=== PATIENT | male | born 1985 | race Hispanic/Latino ===

== ENCOUNTER 2020-10-27 15:06 | Emergency (ER) | payer BC, OTHER ==
[2020-10-27] MEDS ORDERED: DiphenhydrAMINE HCL 50 MG/ML VIAL ONE (15:41)
[2020-10-27] MEDS ORDERED: DEXAMETHASONE SOD PHOSPHATE 10MG/ML 1ML VIAL ONE (15:41)
[2020-10-27] MEDS ORDERED: FAMOTIDINE 20MG TAB 20 MG TAB ONE (15:41)
== END 2020-10-27 17:20 | disposition home or self-care (01) ==
LOC: EDH 15:06
DX: T78.3XXA Angioneurotic edema, initial encounter (principal); T50.B95A Adverse effect of other viral vaccines, initial encounter; Y92.89 Other specified places as the place of occurrence of the external cause
CPT/HCPCS: 96372 ×2; 99284; J1100; J1200

== ENCOUNTER 2021-07-09 02:30 | Emergency (ER) | payer OTHER ==
[~2021-07-09] VITALS: Ht 165.1 cm; Wt 102.1 kg
[2021-07-09 03:11] LABS: APPEARANCE,URINE Clear (CLEAR); BILIRUBIN,URINE Negative (NEGATIVE); COLOR,URINE Yellow (YELLOW); GLUCOSE, URINE (UA) Negative (NEGATIVE); KETONES,URINE 15 mg/dL (NEGATIVE); LEUKOCYTE ESTERASE ,URINE Trace (NEGATIVE); NITRATE,URINE Negative (NEGATIVE); OCCULT BLOOD,URINE Large (NEGATIVE); PH,URINE 5.5 (5.0-8.0); PROTEIN,URINE Trace mg/dL (NEGATIVE)
[2021-07-09 03:23] LABS: RBC,URINE 51-100 /HPF (0-1)
[2021-07-09 03:24] LABS: BACTERIA,URINE None Seen /HPF (None Seen); MUCUS,URINE Few LPF (None Seen); SQUAMOUS EPITHELIAL CELL,UR None Seen /HPF (0-2); WBC,URINE 0-1 /HPF (0-1)
[2021-07-09 03:28] LABS: BASOPHILS % (AUTO) 0.7 % (0.0-5.0); HEMATOCRIT 46.7 % (42-54); LYMPHOCYTES % (AUTO) 35.9 % (21.0-51.0); MEAN CORPUSCULAR HEMOGLOBIN 29.6 pg (27.0-33.0); MEAN CORPUSCULAR HGB CONC 35.1 g/dL (32.0-36.0); MEAN CORPUSCULAR VOLUME 84.3 fL (79-99); MONOCYTES % (AUTO) 7.5 % (3.0-13.0); NEUTROPHILS % (AUTO) 53.8 % (40.0-77.0); PLATELET COUNT (AUTO) 355 K/uL (130-400); RED BLOOD CELL COUNT(AUTO) 5.54 MIL/uL (4.50-6.20); RED CELL DISTRIBUTION WIDTH 12.4 % (11.0-15.5); WHITE BLOOD COUNT (AUTO) 7.6 K/uL (4.8-10.8)
[2021-07-09 03:55] LABS: BILIRUBIN,TOTAL 0.5 mg/dL (0.2-1.0); TOTAL PROTEIN, SERUM 7.2 g/dL (6.0-8.3)
[2021-07-09] MEDS ORDERED: KETOROLAC 30MG VIAL (30MG/ML) ONE (04:50)
[2021-07-09] MEDS ORDERED: 0.9%NACL 1000ML 1,000 ML IV ONE (05:00)
[2021-07-09] MEDS ORDERED: KETOROLAC 30MG VIAL (30MG/ML) IV ONE (05:00)
[2021-07-09] MEDS ORDERED: MELO7.5T12 PO (05:23)
[2021-07-09] MEDS ORDERED: METO-296 PO (05:23)
[2021-07-09] MEDS ORDERED: ONDA4TAB10 PO (05:23)
[2021-07-09] MEDS ORDERED: DICY20TA2 PO (05:23)
[2021-07-09] MEDS ORDERED: TAMS-1 PO (05:23)
[2021-07-09 05:30] VITALS: BP 126/75
== END 2021-07-09 05:50 | disposition home or self-care (01) ==
LOC: EDH 02:30
DX: E86.9 Volume depletion, unspecified (principal); N23 Unspecified renal colic; R31.9 Hematuria, unspecified; I10 Essential (primary) hypertension; Z79.1 Long term (current) use of non-steroidal anti-inflammatories (NSAID); Z87.442 Personal history of urinary calculi
CPT/HCPCS: 36415; 80053; 81001; 85025; 96361; 96374; 99283; J1885; J7030

== ENCOUNTER 2023-05-04 00:22 | Emergency (ER) | payer OTHER ==
[~2023-05-04] VITALS: Ht 165.1 cm; Wt 108.0 kg
[~2023-05-04 00:22] MED LIST: DICY20TA2 PO; MELO7.5T12 PO; METO-296 PO; ONDA4TAB10 PO; TAMS-1 PO
[2023-05-04 01:12] LABS: BASOPHILS # (AUTO) 0.06 K/uL (0.00-0.20); BASOPHILS % (AUTO) 0.6 % (0.0-5.0); EOSINOPHILS # (AUTO) 0.25 K/uL (0.00-0.70); EOSINOPHILS % (AUTO) 2.6 % (0.0-8.0); HEMATOCRIT 39.7 % (42-54); IMMATURE GRANULOCYTE ABSOLUTE 0.07 K/uL (0-1); LYMPHOCYTES # (AUTO) 3.6 K/uL (1.0-4.8); LYMPHOCYTES % (AUTO) 38.3 % (21.0-51.0); MEAN CORPUSCULAR HEMOGLOBIN 29.1 pg (27.0-33.0); MEAN CORPUSCULAR VOLUME 85.6 fL (79-99); MONOCYTES # (AUTO) 0.8 K/uL (0.1-1.0); MONOCYTES % (AUTO) 8.7 % (3.0-13.0); NEUTROPHILS # (AUTO) 4.6 K/uL (1.8-7.7); NEUTROPHILS % (AUTO) 49.1 % (40.0-77.0); PLATELET COUNT (AUTO) 347 K/uL (130-400); RED BLOOD CELL COUNT(AUTO) 4.64 MIL/uL (4.50-6.20); RED CELL DISTRIBUTION WIDTH 13.1 % (11.0-15.5); WHITE BLOOD COUNT (AUTO) 9.5 K/uL (4.8-10.8)
[2023-05-04 01:24] LABS: POTASSIUM 3.7 mmol/L (3.5-5.1)
[2023-05-04 01:31] LABS: ALBUMIN 3.3 g/dL (3.5-5.0); BILIRUBIN,TOTAL 0.2 mg/dL (0.2-1.0); MAGNESIUM 1.7 mg/dL (1.80-2.40); TOTAL PROTEIN, SERUM 6.7 g/dL (6.0-8.3)
[2023-05-04 02:00] LABS: B-TYPE NATRIURETIC PEPTIDE < 5 pg/mL (0-100)
[2023-05-04] MEDS ORDERED: MECL-262 PO (03:05)
[2023-05-04] MEDS ORDERED: MECLIZINE HCL 25 MG TABLET PO ONE (03:30)
[2023-05-04 04:22] LABS: ADD UA MICROSCOPIC NO; APPEARANCE,URINE CLEAR (CLEAR); BILIRUBIN,URINE NEGATIVE (NEGATIVE); COLOR,URINE COLORLESS (YELLOW); GLUCOSE, URINE (UA) NEGATIVE (NEGATIVE); KETONES,URINE NEGATIVE (NEGATIVE); LEUKOCYTE ESTERASE ,URINE NEGATIVE Leu/uL (NEGATIVE); NITRATE,URINE NEGATIVE (NEGATIVE); OCCULT BLOOD,URINE NEGATIVE (NEGATIVE); PH,URINE 5.5 (5.0-8.0); PROTEIN,URINE NEGATIVE (NEGATIVE); UROBILINOGEN,URINE 0.2 mg/dL (0.2-1.0)
[2023-05-04 04:28] LABS: AMPHET/METH SCREEN,URINE NEGATIVE (NEGATIVE); BARBITURATE SCREEN, URINE NEGATIVE (NEGATIVE); BENZODIAZEPINES SCREEN,URINE NEGATIVE (NEGATIVE); CANNABINOID SCREEN,URINE NEGATIVE (NEGATIVE); COCAINE SCREEN,URINE NEGATIVE (NEGATIVE); OPIATE SCREEN,URINE NEGATIVE (NEGATIVE); PHENCYCLIDINE SCREEN,URINE NEGATIVE (NEGATIVE)
[2023-05-04 04:54] LABS: CREATINE KINASE, TOTAL 227 U/L (21-232)
[2023-05-04 05:01] LABS: INR < 0.93 (0.85-1.15); PROTHROMBIN TIME 9.8 SEC (9.6-11.6)
[2023-05-04 05:02] LABS: PARTIAL THROMBOPLASTIN TIME 25.9 SEC (26.3-35.5)
[2023-05-04 05:09] LABS: ALCOHOL, BLOOD < 3 mg/dL (0-10)
[2023-05-04] MEDS ORDERED: IOHEXOL-350 75 ML VIAL IV ONE (05:20)
[2023-05-04 06:51] VITALS: BP 148/92; PULSE 74; RESP 16; O2SAT 98
== END 2023-05-04 06:55 | disposition home or self-care (01) ==
LOC: EDH 00:22
DX: R42 Dizziness and giddiness (principal); I10 Essential (primary) hypertension; Z79.899 Other long term (current) drug therapy; Z98.890 Other specified postprocedural states
CPT/HCPCS: 99285; 70496; 71045; 82550 ×2; 83735; 84484 ×2; 80053; 80305; 85025; 85610; 85730; 82948; 36415; 70498; 93005; 70450; 81003; 83880 ×2; Q9967

== ENCOUNTER 2025-01-30 11:25 | Emergency (ER) | payer OTHER ==
[~2025-01-30] VITALS: Ht 165.1 cm; Wt 82.1 kg
[~2025-01-30 11:25] MED LIST changes: +MECL-262 PO; +ONDA-243 PO; -ONDA4TAB10 PO; -TAMS-1 PO; +TAMS-55 PO
--- NOTE | 2025-01-30 11:51 | ERN ---
ED Note History of Present Illness Stated Complaint: RIGHT FLANK PAIN Chief Complaint: Flank Pain Time Seen by MD: 11:30 Dictation: 39-year-old male presents to ER complaints of right flank pain. Patient states he has history of kidney stones. Patient states that is kidney stone approximately 1 month ago. Kidney stones have always been small enough where he can pass him on his own. Patient took Tylenol codeine 3. At 7:00 a.m. today and a Flomax at 4:00 a.m. today. Patient with history of HTN. Denies any fever. Allergies: Coded Allergies: No Known Allergies (Unverified Allergy, Unknown, 07/09/21) Home Meds Active Scripts Tamsulosin HCl (Flomax) 0.4 Mg Cap.er.24h, 1 CAP PO DAILY for 5 Days, #5 CAP 0 Refills Prov:ELIS DAVID NP 01/30/25 Naproxen (Naprosyn) 500 Mg Tablet, 500 MG PO BIDPC for PAIN, #20 TAB 0 Refills Prov:ELIS DAVID NP 01/30/25 Meclizine HCl (Antivert) 25 Mg Tab.chew, 25 MG PO TID, #60 TAB Prov:NICHOLE MONTIEL MD 05/04/23 Meloxicam (Mobic) 7.5 Mg Tablet, 7.5 MG PO DAILY, #10 TAB 0 Refills Prov:ABRIL ASH MD 07/09/21 Ondansetron (Ondansetron Odt) 4 Mg Tab.rapdis, 4 MG PO Q6HPRN, #20 TAB 0 Refills Prov:ABRIL ASH MD 07/09/21 Metoclopramide HCl (Reglan) 10 Mg Tablet, 10 MG PO TIDP, #20 TAB 0 Refills Prov:ABRIL ASH MD 07/09/21 Dicyclomine HCl (Bentyl) 20 Mg Tab, 20 MG PO Q6HPRN, #20 TAB 0 Refills Prov:ABRIL ASH MD 07/09/21 Tamsulosin HCl (Flomax) 0.4 Mg Cap.er.24h, 0.4 MG PO DAILY, #14 CAPSULE.DR 0 Refills Prov:ABRIL ASH MD 07/09/21 Past Medical History Past Medical History: Hypertension, Kidney Stone Additional Past Medical Hx: Prediabetes Surgical History: None Family History: HTN Social History: Negative, Lives with family Review of System Dictation Constitutional: Negative for fever,chills, and weight loss Eyes: Negative for injury, pain,redness, and discharge ENT: Negative for injury,pain or swelling Cardiovascular: Negative for chest pain, palpitations, and edema Respiratory: Negative for shortness of breath, cough, wheezing, and pleuritic chest pain Abdomen/GI: Negative for abdominal pain, vomiting, diarrhea, and constipation. Positive for nausea Back: Negative for injury and pain : Positive for right flank pain MS/Extremity: Negative for injury and deformity Skin: Negative for rash, and discoloration Neuro: Negative for headache, weakness, numbness, tingling, and seizure Psych: Negative for suicide ideation, homicidal ideation, and hallucinations Allergy/Immunology: Negative for hives, rash, and allergies Initial Vital Sign VS Vital Signs Date Time Temp Pulse Resp B/P (MAP) Pulse Ox O2 Delivery O2 Flow Rate FiO2 01/30/25 11:26 97.7 73 18 146/97 99 Room Air 01/30/25 13:14 0 21 Physical Exam Dictation General: awake, alert, NAD Head/Face: Normocephalic, atraumatic Eyes: PERRL, EOMI, vision at baseline ENT: oral cavity clear, TMs clear, no signs of infection Neck: Trachea midline, supple, no nuchal rigidity Cardiovascular: RRR, normal S1/S2, No MRGs, no JVD Respiratory: CTAB, no respiratory distress, No rales or wheezes Abdomen: Soft, non-tender, non-distended, normal bowel sounds, no guarding or rebound. Skin: Warm, dry, normal turgor, no rash MS/Extremity: Pulses equal, no cyanosis, neurovascular intact, FROM. Positive right CVA tenderness Neuro: COAx4, GCS 15, strength 5/5, CN 2-12 intact, normal cerebellar exam, normal gait, Psych: Normal behavior, mood, and affect normal Results (Laboratory/Radiology) Laboratory/Radiology Laboratory Tests Test 01/30/25 11:56 01/30/25 12:22 Urine Color YELLOW (YELLOW) Urine Appearance CLOUDY (CLEAR) H Urine pH 6.0 (5.0-8.0) Urine Specific [place] 1.019 (1.001-1.031) Urine Protein 100 mg/dL (NEGATIVE) H Urine Glucose (UA) NEGATIVE mg/dL (NEGATIVE) Urine Ketones NEGATIVE mg/dL (NEGATIVE) Urine Occult Blood LARGE (NEGATIVE) H Urine Nitrate NEGATIVE (NEGATIVE) Urine Bilirubin NEGATIVE mg/dL (NEGATIVE) Urine Urobilinogen 0.2 mg/dL (0.2-1.0) Urine Leukocyte Esterase 250 Chris/uL (NEGATIVE) H Urine RBC TNTC /HPF (0-1) H Urine WBC >100 /HPF (0-1) H Urine Squamous Epithelial Cells RARE /HPF (0-2) Urine Calcium Oxalate Crystals RARE /LPF (None Seen) Urine Bacteria None /HPF (None Seen) White Blood Count 10.5 K/uL (4.8-10.8) Red Blood Count 5.04 MIL/uL (4.50-6.20) Hemoglobin 14.4 g/dL (14.0-18.0) Hematocrit 41.4 % (42-54) L Mean Corpuscular Volume 82.1 fL (79-99) Mean Corpuscular Hemoglobin 28.6 pg (27.0-33.0) Mean Corpuscular Hemoglobin Concent 34.8 g/dL (32.0-36.0) Red Cell Distribution Width 13.2 % (11.0-15.5) Platelet Count 374 K/uL (130-400) Mean Platelet Volume 8.7 fL (7.5-10.5) Immature Granulocyte % (Auto) 0.3 % (0-1) Neutrophils (%) (Auto) 61.1 % (40.0-77.0) Lymphocytes (%) (Auto) 27.8 % (21.0-51.0) Monocytes (%) (Auto) 7.6 % (3.0-13.0) Eosinophils (%) (Auto) 2.7 % (0.0-8.0) Basophils (%) (Auto) 0.5 % (0.0-5.0) Neutrophils # (Auto) 6.4 K/uL (1.8-7.7) Lymphocytes # (Auto) 2.9 K/uL (1.0-4.8) Monocytes # (Auto) 0.8 K/uL (0.1-1.0) Eosinophils # (Auto) 0.28 K/uL (0.00-0.70) Basophils # (Auto) 0.05 K/uL (0.00-0.20) Absolute Immature Granulocyte (auto 0.03 K/uL (0-1) Nucleated Red Blood Cells 0.0 % (0.0-0.19) Sodium Level 141 mmol/L (136-145) Potassium Level 2.6 mmol/L (3.5-5.1) *L Chloride Level 100 mmol/L (101-111) L Carbon Dioxide Level 31 mmol/L (21-32) Blood Urea Nitrogen 15 mg/dL (7-18) Creatinine 1.7 mg/dL (0.5-1.3) H Glomerular Filtration Rate Calc 52 mL/min (>90) Random Glucose 97 mg/dL (70-105) Total Calcium 9.1 mg/dL (8.5-10.1) ED Course ED Course Orders Procedure Category Date Status Time 0.9%Nacl 1000ml (Ns PHA 01/30/25 Complete 1000ml) 12:00 Ketorolac PHA 01/30/25 Complete Tromethamine 30mg/Ml 12:00 Ondansetron 4mg Inj PHA 01/30/25 Complete (Zofran 4mg Inj) 12:00 Urinalysis Profile LAB 01/30/25 Complete 11:46 Cbc With Differential LAB 01/30/25 Complete 11:46 Basic Metabolic Panel LAB 01/30/25 Complete 11:46 Culture Urine MANISH 01/30/25 In Process 12:10 Hydromorphone 2mg PHA 01/30/25 Complete Vial (Dilaudid 2mg Inj 13:00 Us Renal Sonogram US 01/30/25 Taken 13:12 Magnesium Oxide PHA 01/30/25 Complete (Mag-Ox) 13:30 Potassium Bicarb/Cit PHA 01/30/25 Complete Ac 25meq (K-Lyte Ta 13:30 Current Medications Medications (Trade) Dose Ordered Sig/Wilber Route PRN Reason Start Time Stop Time Status Last Admin Dose Admin Hydromorphone HCl (DiLAUDid 2MG INJ) 2 mg ONCE ONCE IVP 01/30/25 13:00 01/30/25 13:01 DC 01/30/25 13:16 Ketorolac Tromethamine (toRADol) 30 mg ONCE ONCE IVP 01/30/25 12:00 01/30/25 12:01 DC 01/30/25 13:09 Magnesium Oxide (Mag-Ox) 400 mg ONCE ONCE PO 01/30/25 13:30 01/30/25 13:31 DC 01/30/25 13:19 Ondansetron HCl (zoFRAN 4MG INJ) 4 mg ONCE ONCE IVP 01/30/25 12:00 01/30/25 12:01 DC 01/30/25 13:10 Potassium Bicarbonate (K-Lyte Tablet Eff 25 Meq Tablet.eff) 25 meq ONCE ONCE PO 01/30/25 13:30 01/30/25 13:31 DC 01/30/25 13:19 Sodium Chloride 1,000 ml @ 0 mls/hr ONCE ONCE IV 01/30/25 12:00 01/30/25 12:01 DC 01/30/25 13:10 Vital Signs Date Time Temp Pulse Resp B/P (MAP) Pulse Ox O2 Delivery O2 Flow Rate FiO2 01/30/25 13:14 85 18 145/88 100 Room Air* 0 21 01/30/25 11:26 97.7 73 18 146/97 99 Room Air Medical Decision Making MDM MDM: Kidney stone, flank pain, pyelonephritis, UTI Differential diagnosis: Rationale: Tests considered and ordered secondary to shared decision making include: labs, ECG and radiology Previous outside records reviewed: Old ER visits. Risk of complication and/or morbidity or mortality of patient management: None Medications-Per medication reconciliation Need for hospitalization: Patient does NOT meet criteria for hospitalization. Need for emergency major/minor surgery: No There are no social concerns with this patient. Prescription drug management Prescriptions will include symptomatic care Patient's prior external medical records from other ER visits were reviewed by me as indicated. Prior testing and results from previous visits were reviewed. Prior tests were taken into account with medical decision making and resource utilization, independent historian/historians were used to obtain complete medical history. I independently interpreted the test that were performed, results were reviewed by me and considered findings on radiology if ordered. PATIENT VSS, NAD, NONTOXIC, STABLE FOR DISCHARGE. PT GIVEN DISCHARGE INSTRUCTIONS IN [place] TERMS AND UNDERSTOOD, ALL QUESTIONS ANSWERED. PT WILL FOLLOW UP WITH PCP AND RETURN TO THE ER IF WORSE. DX & DISP Disposition: Discharge Departure Impression: Primary Impression: Kidney stone Additional Impression: Flank pain Condition: Stable Scripts Tamsulosin HCl (Flomax) 0.4 Mg Cap.er.24h 1 CAP PO DAILY for 5 Days, #5 CAP 0 Refills Prov: ELIS DAVID NP 01/30/25 Naproxen (Naprosyn) 500 Mg Tablet 500 MG PO BIDPC for PAIN, #20 TAB 0 Refills Prov: ELIS DAVID NP 01/30/25 Additional Instructions: FOLLOW-UP WITH YOUR PCP IN 24-72 HOURS AND IN THE EVENT IF SYMPTOMS WORSEN OR AN EMERGENCY OVERNIGHT REPORT TO THE ED IMMEDIATELY Referrals: WALKER LOERA MD (PCP) ELIS DAVID NP Jan 30, 2025 11:51
[2025-01-30 12:08] LABS: APPEARANCE,URINE CLOUDY (CLEAR); GLUCOSE, URINE (UA) NEGATIVE (NEGATIVE); LEUKOCYTE ESTERASE ,URINE 250 Leu/uL (NEGATIVE); NITRATE,URINE NEGATIVE (NEGATIVE); OCCULT BLOOD,URINE LARGE (NEGATIVE)
[2025-01-30 12:09] LABS: ADD UA MICROSCOPIC YES
[2025-01-30 12:12] LABS: CALCIUM OXALATE CRYSTALS,UR RARE /LPF (None Seen); SQUAMOUS EPITHELIAL CELL,UR RARE /HPF (0-2)
[2025-01-30 12:39] LABS: IMMATURE GRANULOCYTE ABSOLUTE 0.03 K/uL (0-1); NUCLEATED RED BLOOD CELLS 0.0 % (0.0-0.19); PLATELET COUNT (AUTO) 374 K/uL (130-400); RED BLOOD CELL COUNT(AUTO) 5.04 MIL/uL (4.50-6.20); RED CELL DISTRIBUTION WIDTH 13.2 % (11.0-15.5); WHITE BLOOD COUNT (AUTO) 10.5 K/uL (4.8-10.8)
[2025-01-30 12:58] LABS: CREATININE 1.7 mg/dL (0.5-1.3); GLOMERULAR FILTR. RATE CALC 52.0 mL/min (>90); GLUCOSE,RANDOM 97.0 mg/dL (70-105); SODIUM SERUM 141.0 mmol/L (136-145); UREA NITROGEN, BLOOD 15.0 mg/dL (7-18)
[2025-01-30] MEDS: 0.9%NACL 1000ML 1,000 ML IV ONE (13:10)
[2025-01-30] MEDS: MAGNESIUM OXIDE 400 MG TABLET PO ONE (13:19)
[2025-01-30] MEDS ORDERED: TAMS-55 PO (14:58)
[2025-01-30] MEDS ORDERED: NAPR-1180 PO (14:58)
[2025-01-30 15:09] VITALS: BP 135/98; PULSE 81; RESP 18; TEMP 97.7; O2SAT 98
--- NOTE | 2025-01-30 15:42 | HMCIMG ---
EXAM: US Retroperitoneum, Renal. CLINICAL HISTORY: RIGHT FLANK PAIN TECHNIQUE: Real-time ultrasound of the retroperitoneum with image documentation. COMPARISON: None provided. FINDINGS: RIGHT KIDNEY: Measures 11.9 x 5.9 x 4.9 cm. Parenchyma: Corticomedullary differentiation is maintained. Simple renal cyst in the lower pole measuring 12 x 9 mm. Simple cyst in the upper pole measuring 9 x 8 mm. Calculi: Tiny echogenic calculi in the upper pole, measuring 5 to 6 mm. Hydroureteronephrosis: Mild right-sided hydroureteronephrosis is noted. Right Ureter: Dilated, measuring approximately 1 cm. Perinephric Region: No perinephric collection or mass lesion seen. LEFT KIDNEY: Measures 11.5 x 6.0 x 4.9 cm. Parenchyma: Corticomedullary differentiation is preserved. Calculi: No calculi seen. Hydroureteronephrosis: Severe left-sided hydroureteronephrosis is noted. Left Ureter: Dilated, measuring approximately 1.3 cm. Perinephric Region: No perinephric collection or mass lesion seen. BLADDER: Unremarkable as visualized. MISCELLANEOUS: No other significant abnormality evident. IMPRESSION: 1. Bilateral hydronephrosis and hydroureter, severe on the left and mild on the right. Recommend CT urography for further evaluation. 2. Right renal calculi measuring up to 6 mm in the upper pole 3. Simple right renal cysts in upper and lower poles, largest measuring 12 x 9 mm /Lavina
== END 2025-01-30 15:17 | disposition home or self-care (01) ==
LOC: EDH 11:25
DX: N13.2 Hydronephrosis with renal and ureteral calculous obstruction (principal); I10 Essential (primary) hypertension; Z79.1 Long term (current) use of non-steroidal anti-inflammatories (NSAID); Z87.442 Personal history of urinary calculi; Z79.899 Other long term (current) drug therapy
CPT/HCPCS: 99285; 96374; 76770; 96375; 80048; 85025; 87086 ×3; 87186 ×2; 81001; 36415; J1885; J7030 ×2; J2405; J1171